=== PATIENT | male | born 1955 | race Caucasian/White ===

== ENCOUNTER 2021-08-20 08:49 | Outpatient (CLI) | payer BC, SELFPAY | END 2021-08-20 08:50 | disposition home or self-care (01) | PROVIDERS: PCP Physician Assistant; Visit Provider Specialist | DX: C44.529 Squamous cell carcinoma of skin of other part of trunk (principal) | CPT/HCPCS: 88305 ==

== ENCOUNTER 2023-07-02 10:38 | Outpatient (CLI) | payer MEDICARE, SELFPAY ==
[2023-07-02 11:08] LABS: Hematocrit 44.1 % (42.0-52.0); Mean Corpuscular HGB Conc 31.7 g/dl (32-36); Mean Corpuscular Hemoglobin 27.9 pg (26-34); Mean Platelet Volume 9.1 fl (7.4-10.4); Platelet Count Result 275 k/mm3 (150-375); Red Blood Count 5.01 M/mm3 (4.6-6.20); Red Cell Distribution Width 12.8 % (11.5-14.5); White Blood Count 5.7 K/mm3 (4.5-10.0)
[2023-07-02 12:32] LABS: Alanine Aminotransferase 25 U/L (6-50); Albumin Level 4.6 g/dL (3.5-5.1); Alkaline Phosphatase 56 U/L (38-126); Anion Gap 8 mmol/L (8-16); Aspartate Amino Transferase 37 U/L (17-59); Bilirubin,Total 0.8 mg/dL (0.2-1.3); Blood Urea Nitrogen 19 mg/dL (9-20); Carbon Dioxide 25 mmol/L (22-30); Chloride 104 mmol/L (98-107); Cholesterol 220 mg/dL (0-200); Estimated Glomerular Filt Rate > 60; Glucose 111 mg/dL (65-110); HDL Direct 36 mg/dL; Potassium 4.6 mmol/L (3.4-5.0); Sodium 137 mmol/L (137-145); Triglycerides 186 mg/dL (<150)
[2023-07-02 12:43] LABS: LDL Cholesterol Direct 149 mg/dL
[2023-07-02 13:02] LABS: Prostate Specific Antigen 1.3 ng/mL (< OR = 4.0)
[2023-07-02 16:08] LABS: Vitamin D 25 Hydroxy 60.5 ng/mL
== END 2023-07-02 10:39 | disposition home or self-care (01) ==
PROVIDERS: PCP Family Medicine; Visit Provider Nurse Practitioner Family
DX: E78.00 Pure hypercholesterolemia, unspecified (principal); E78.5 Hyperlipidemia, unspecified; I10 Essential (primary) hypertension; Z13.29 Encounter for screening for other suspected endocrine disorder; R31.9 Hematuria, unspecified; Z12.5 Encounter for screening for malignant neoplasm of prostate; R30.0 Dysuria; E55.9 Vitamin D deficiency, unspecified
CPT/HCPCS: 36415; 80053; 80061; 82306; 84153; 84443; 85027

== ENCOUNTER 2023-07-09 14:02 | Outpatient (CLI) | payer MEDICARE, SELFPAY ==
--- NOTE | ~2023-07-09 | CT_ITS ---
EXAMINATION: CT abdomen pelvis wo con DATE: 07/09/2023 14:22 INDICATION: Inflammatory disease of prostate, unspecified. TECHNIQUE: Computed tomography (CT) of the abdomen and pelvis was performed without intravenous contr ast. Automated exposure control and iterative reconstruction technique were employed. The dose-length product was 1521.61 mGy-cm. COMPARISON: CT abdomen and pelvis 01/14/2016 FINDINGS: The visualized portions of the lung bases demonstrate calcified pulmonary nodules, consiste nt with old granulomatous disease. No pleural effusion. The heart size is normal. There are coronary artery calcifications. No pericardial effusion. There is a small sliding hiatal hernia. There is diff use hepatic steatosis. Calcifications in the liver consistent with old granulomatous disease. The spl een, pancreas, and right adrenal gland are normal. There is a 15 mm mass in left adrenal gland measur ing low-attenuation without change, consistent with an adenoma. Right kidney is normal. There is a 5 mm stone in left kidney. There is mild left hydronephrosis and hydroureter. There is a 2.6 cm mass wi th mild peripheral calcifications in the bladder at the left ureteral orifice, consistent with urothe lial carcinoma. The prostate is mildly enlarged. There is diverticulosis of the colon without evidenc e of diverticulitis. The appendix is not visualized. There are no dilated loops of bowel. Aortic athe rosclerosis is noted. There are no pathologically enlarged lymph nodes. There is no free intraperiton eal fluid. There is lumbar levocurvature and severe spondylosis. There are bridging endplate osteophy basmi at multiple levels in the spine, consistent with diffuse idiopathic skeletal hyperostosis (DISH). IMPRESSION: 1. 2.6 cm mass in the bladder at the left ureteral orifice, consistent with urothelial carcinoma. 2. Mild left hydronephrosis and hydroureter. Reviewed, dictated and finalized at location E. E SYSTEMS INSTALLER IMPRESSION: 1. 2.6 cm mass in the bladder at the left ureteral orifice, consistent with uro thelial carcinoma. 2. Mild left hydronephrosis and hydroureter.
== END 2023-07-09 14:03 | disposition home or self-care (01) ==
LOC: ANHIMG 14:06
PROVIDERS: PCP Family Medicine; Visit Provider Nurse Practitioner Family
DX: N41.9 Inflammatory disease of prostate, unspecified (principal); R93.89 Abnormal findings on diagnostic imaging of other specified body structures
CPT/HCPCS: 74176

== ENCOUNTER 2023-07-22 10:04 | Outpatient (CLI) | payer MEDICARE, SELFPAY ==
--- NOTE | 2023-07-22 10:07 | EST_ITS ---
Patient Info Name: Sloan Xavier Age: 68 years : 1955 Gender: Male Ht: 76 in Wt: 240 lbs BSA: 2.43 m2 HR: 79 bpm BP: 141 / 91 mmHg Heart Rhythm: Sinus Rhythm Exam Date: 07/22/2023 10:23 AM Exam Location: Echo Lab Patient Status: Outpatient Admit Date: 07/22/2023 Staff Ordering Physician: Opal Levy Attending Provider: Opal Levy Exercise Technologist: Clara Gaston RDCS Exercise Physician: Demetris Black DO Exam Type: CA stress test treadmill Study Info A treadmill exercise stress test was performed. Summary 1. 1. Negative Jaron exercise stress test for ischemic ST changes by ECG criteria. 2. 2. Reduced functional capacity, achieving 5 METs of workload. 3. 3. Baseline hypertension with hypertensive response to exercise. 4. 4. Appropriate HR response to exercise. 5. 5. Appropriate HR recovery at 1 minute post exercise. 6. 6. No imaging with stress testing. 7. 7. Patient informed of the above results. Protocol: Jaron Stress ECG Details Stage: REST Duration (min): 1 min : 14 sec Speed (mph): 0.0 Grade (%): 0 HR (bpm): 82 SBP (mmHg): 141 DBP (mmHg): 91 METS: --- Stage: REST Duration (min): 13 min : 44 sec Speed (mph): 0.0 Grade (%): 0 HR (bpm): 87 SBP (mmHg): 141 DBP (mmHg): 91 METS: --- Stage: STAGE 1 Duration (min): 1 min : 0 sec Speed (mph): 1.7 Grade (%): 10 HR (bpm): 112 SBP (mmHg): 141 DBP (mmHg): 91 METS: --- Stage: STAGE 1 Duration (min): 2 min : 0 sec Speed (mph): 1.7 Grade (%): 10 HR (bpm): 125 SBP (mmHg): 141 DBP (mmHg): 91 METS: --- Stage: STAGE 1 Duration (min): 3 min : 0 sec Speed (mph): 1.7 Grade (%): 10 HR (bpm): 131 SBP (mmHg): 211 DBP (mmHg): 104 METS: --- Stage: STAGE 2 Duration (min): 0 min : 24 sec Speed (mph): 2.5 Grade (%): 12 HR (bpm): 137 SBP (mmHg): 211 DBP (mmHg): 104 METS: --- Stage: RECOVERY Duration (min): 0 min : 35 sec Speed (mph): 0.0 Grade (%): 0 HR (bpm): 131 SBP (mmHg): 211 DBP (mmHg): 104 METS: --- Stage: RECOVERY Duration (min): 1 min : 35 sec Speed (mph): 0.0 Grade (%): 0 HR (bpm): 109 SBP (mmHg): 211 DBP (mmHg): 104 METS: --- Stage: RECOVERY Duration (min): 2 min : 35 sec Speed (mph): 0.0 Grade (%): 0 HR (bpm): 94 SBP (mmHg): 211 DBP (mmHg): 104 METS: --- Stage: RECOVERY Duration (min): 3 min : 35 sec Speed (mph): 0.0 Grade (%): 0 HR (bpm): 99 SBP (mmHg): 203 DBP (mmHg): 88 METS: --- Stage: RECOVERY Duration (min): 4 min : 35 sec Speed (mph): 0.0 Grade (%): 0 HR (bpm): 90 SBP (mmHg): 203 DBP (mmHg): 88 METS: --- Stage: RECOVERY Duration (min): 5 min : 15 sec Speed (mph): 0.0 Grade (%): 0 HR (bpm): 89 SBP (mmHg): 180 DBP (mmHg): 90 METS: --- Rest HR: 87 bpm Peak HR: 138 bpm Rest Sys BP: 141 mmHg Peak Sys BP: 211 mmHg Max Pred HR: 154 bpm % Max Pred HR: 90 % Lunag
== END 2023-07-22 10:05 | disposition home or self-care (01) ==
LOC: ANHCARD 10:06
PROVIDERS: PCP Family Medicine; Visit Provider Nurse Practitioner Family
DX: R06.02 Shortness of breath (principal); I10 Essential (primary) hypertension; Z82.41 Family history of sudden cardiac death
CPT/HCPCS: 93017

== ENCOUNTER 2023-07-31 09:31 | Outpatient (CLI) | payer MEDICARE, SELFPAY ==
--- NOTE | 2023-07-31 10:00 | ECG_ITS ---
Measurements Intervals Ira Rate: 67 P: 52 NM: 188 QRS: 35 QRSD: 85 T: 53 QT: 374 QTc: 397 Interpretive Statements SINUS RHYTHM NORMAL ECG NO PREVIOUS ECG AVAILABLE FOR COMPARISON Electronically Signed On 07-31-2023 13:14:31 CDT by Demetris Black D.O.
== END 2023-07-31 09:32 | disposition home or self-care (01) ==
LOC: ANHSURGERY 09:39
PROVIDERS: PCP Nurse Practitioner Family; Visit Provider Urology
DX: I10 Essential (primary) hypertension (principal); Z01.818 Encounter for other preprocedural examination
CPT/HCPCS: 93005

== ENCOUNTER 2023-08-06 01:30 | Day surgery (SDC) | payer MEDICARE, SELFPAY ==
--- NOTE | 2023-07-30 09:38 | PC.NURSE ---
Report to the Outpatient Waiting Room, entrance under the green pavilion located off [facility], at time __0600 on date __08/06/23 . Planned Procedure Time: _0730 . Time changes happen often and if your time is changed the preop area will call you the afternoon before. - You and your visitor will be asked to self-screen and do not enter if you have any COVID symptoms. - A mask is optional within the hospital at this time. Patients may have clear liquids (water, carbonated beverages, clear teas, apple juice) until 3 hours prior to surgery( 4:30 AM) with a maximum of 20 ounces. - No food from midnight until time of surgery - Infants may have breast milk until 4 hours before surgery, formula 6 hours prior to surgery. - Children will be allowed to drink immediately following surgery. If applicable, please bring a bottle or sippy cup to assist with drinking. Juice, water, soda, and popsicles are readily available. For infants on formula, please bring formula the day of surgery. Pacifiers are allowed. Take the following medications with a SIP of water the morning of surgery: ___NONE DO NOT STOP ANY OF YOUR OTHER PRESCRIPTION MEDICATIONS PRIOR TO SURGERY ?EXCEPT THE FOLLOWING Medications to discontinue per physician ____HOLD ALL VITAMINS AND SUPPLEMENTS 3 DAYS PRE OP.LAST DOSE 08/02/23 Please no make-up, nail spanish, hairspray, perfume, deodorant, or body powder the day of surgery. No jewelry (including any body piercings) or valuables the day of surgery, leave them at home. Please take a shower or bath the night before, or the morning of, surgery with an antibacterial soap. Wear comfortable, loose fitting clothing. Children are encouraged to wear pajamas. - Jewelry must be removed prior to entering the operating room. Rings and piercings that are not removed may be cut off. - The hospital will not accept responsibility for valuables. - Please leave all valuables, including medications, at home the day of surgery. If you are going home after surgery, a licensed batch mixing truck driver must drive you home. - NO public transportation without another adult if you receive anesthesia. - We recommend that an adult stay with you for 24 hours following discharge. - We also recommend that you do not drive, make important decision, drink alcoholic beverages, or take any drugs that were not prescribed by your health care provider for at least 24 hours after your discharge time. Follow any additional instructions given to you from your surgeon. If you or anyone in your household have experienced Covid symptoms in the past week, please notify your surgeon or the nurse liaison at the phone number below for possible testing. Telephone instructions given to ___PATIENT and asked if any additional questions and then verbalized understanding. Patient advised to call surgeon office or pre surgery nurse liaison [phone] if any additional questions.
[2023-07-30 09:45] VITALS: BMI 32.3
[2023-08-06] VITALS (10 sets, daily range): BP systolic 129–162; BP diastolic 65–89; PULSE 61–81; RESP 12–20; TEMP 36.5; O2SAT 95–100; BMI 33.9
--- NOTE | ~2023-08-06 | XR_ITS ---
EXAMINATION: XR retrograde pyelogram BI INDICATION: Bilateral retrograde pyelogram TECHNIQUE: 96 intraoperative fluoroscopic images are submitted for review. Total fluoroscopic time wa s 25.4 seconds. COMPARISON: CT, 07/09/2023 FINDINGS: Fluoroscopic images demonstrate moderate left hydroureteronephrosis. The right renal collec ting system and ureter are normal. Please refer to procedure note for full details. IMPRESSION: 1. Moderate left hydroureteronephrosis. Please refer to procedure note for full details. Reviewed, dictated and finalized at location F.
--- NOTE | 2023-08-06 06:20 | WPDHPUPDATE1 ---
History and Physical Update Update Date/Time: 08/06/23 06:20 History and Physical has been reviewed, including an updated exam of the patient. There are NO changes in the patient's condition. Risks, benefits, and alternatives have been discussed and questions answered. Patient agrees to proceed with procedure.
--- NOTE | 2023-08-06 06:42 | WPDANESEPPF ---
Anes - Initial Pre Proc Eval Procedure: Operation Date: 08/06/23 07:30 Proposed Procedures p Cystoscopy, Bilateral Retrograde Pyelogram, Possible Left Ureteroscopy - Felipe Bass MD s Trans Urethral Resection Bladder Tumor with Gemcitabine Instillation - Felipe Bass MD Date/Time: 08/06/23 06:42 Surgeon: Felipe Bass MD Pre Op Diagnosis: Hematuria Patient Data Age: 68 Gender: M Height: 1.93 m Weight: 120.3 kg Allergies Allergy/AdvReac Type Severity Reaction Status Date / Time No Known Allergies Allergy Verified 07/30/23 09:29 Home Medications Medication Instructions Recorded Confirmed Type Bacillus coagulans 10 billion cell 10 cell PO DAILY 07/02/23 07/30/23 History capsule,delayed release (Probiotic (B. coagulans)) cholecalciferol (vitamin D3) 25 25 mcg PO DAILY 07/02/23 07/30/23 History mcg (1,000 unit) capsule esomeprazole magnesium 20 mg 20 mg PO DAILY 07/02/23 07/30/23 History capsule,delayed release (Nexium) multivit,calcium,min-folic acid 1 tablet PO DAILY 07/02/23 07/30/23 History 240 mcg-D3 25 mcg-lycop 300 mcg tablet (One A Day Men Complete) gemfibrozil 600 mg tablet 600 mg PO BID #180 tabs 07/10/23 07/30/23 Rx lisinopril 20 mg tablet 20 mg PO DAILY #90 tabs 07/10/23 07/30/23 Rx Patient hx anesthesia problems: none Family hx anesthesia problems: none Results Review: All pre-operative results and documents have been reviewed as part of the pre-operative evaluation. [facility] Past Medical History Medical History (Updated 08/06/23 @ 06:42 by Grzegorz Santana MD) BMI 33.0-33.9,adult Essential hypertension Hematuria Hyperlipidemia Surgical History Surgical History (Updated 08/06/23 @ 06:46 by Grzegorz Santana MD) History of appendectomy Family History Family History Father Acute myocardial infarction Social History Social History Smoking packs per day: 1 Smoking cigarettes per day: 20.0 Years smoked: 35 Smoking pack-years: 35.00 Smoking status: Former smoker Tobacco type: cigarettes Smoking end date: 05/18/15 Alcohol intake: never Do You Feel Safe in your Home?: Yes Lack of Transportation: No Lack of Food: Never True Current Housing: I Have Housing Concerned About Future Housing: No Difficulty Paying Gas/Electric Bills: No Difficulty Paying for Meds: No Currently Unemployed: No Education: High School Diploma/GED Difficulty w/ Childcare or Family Care: No Living arrangements: with family Spiritual care concerns: No Anes - Eval Final PreProcedure Day of Procedure 08/06/23 06:42 Patient weight: obese Heart: regular rate and rhythm Airway: Mallampati scale class III Neurological: alert and oriented Last oral intake: >/= 8 hours ASA classification: III Emergent: no Anesthetic plan: proceed Anesthesia type and monitoring: general LMA and standard monitoring Results Review: All pre-operative results and documents have been reviewed as part of the pre-operative evaluation. Informed Consent: The patient's anesthetic plan and its attendant risks and benefits were discussed with the patient/family/POA. Questions were solicited and answers provided to the satisfaction of the patient/family/POA.
[2023-08-06] MEDS: ceFAZolin 3 GM/D5W 100 ML 100 ML IVPB (07:27)
[2023-08-06] MEDS: LACTATED RINGERS 1,000 ML 30 ML IV CONT (07:29)
[2023-08-06] MEDS: LIDOCAINE HCL 2% GEL UROJET 10 ML PKG MUCOUS MEM (07:47)
[2023-08-06] MEDS: SODIUM CHLORIDE 0.9% IV 23.7 ML, GEMCITABINE HCL 1,000 MG BLADDER ×2 (08:23→08:24)
--- NOTE | 2023-08-06 08:30 | W.PM.PROC2 ---
Procedure Note - Detailed Date of Procedure 08/06/23 Pre-op Diagnosis Bladder cancer Post-op Diagnosis Same Procedure Performed Cystoscopy, bilateral retrograde pyelography, TURBT, left ureteroscopy Surgeon Felipe Bass MD Anesthesia General Description of Procedure Patient is brought to the operative suite was prepped and draped in routine sterile fashion while in dorsal lithotomy position after the uneventful induction of a general LMA anesthetic. First placed a 21 F rigid cystoscope in his bladder. He has no urethral stricture and moderate lateral lobe hyperplasia without median lobe enlargement. Prostatic urethra was 2.5 cm estimated length. Bladder shows a large papillary lesion overlying the left posterior lateral bladder wall. I attempted to identify the left ureteral orifice without success. I therefore replaced the cystoscope with a 24 F resectoscope. I resected this large tumor to its base. I was able to identify the left ureteral orifice and avoid any cutting or cautery injury to it. There was 1 small satellite lesion just above this large, 5 cm bladder tumor. After resecting the bulk of the neoplasm I sent the base as a separate specimen. Base and periphery were cauterized with the loop electrode with care taken to avoid any cautery to left ureteral orifice. Bilateral retrograde pyelograms were then obtained using an 8 F bulb-tipped catheter. There was mild dilatation left distal ureter without filling defects. Remainder the ureters and collecting system on both sides were normal, without obstruction or additional filling defects. I did do quick left distal ureteroscopy with a semi-rigid ureteral scope to the level of the iliac vessels. The distal left ureter was endoscopically normal without mucosal hyperemia or neoplasm. Scopes wires were removed. Patient was taken recovery room in good condition Estimated Blood Loss 5 Drains Yes Packing No Pathology Yes Complications No immediate complications Condition Stable Disposition PACU
[2023-08-06] MEDS: fentaNYL CITRATE INJ (*CRX) 100 MCG/2 ML VIAL 25 MCG IV PUSH ×4 (08:31→08:50)
--- NOTE | 2023-08-06 08:34 | W.PM.PROC2 ---
Procedure Note - Detailed Date of Procedure 08/06/23 Pre-op Diagnosis Bladder tumor Post-op Diagnosis Same Procedure Performed Gemcitabine installation Surgeon Felipe Bass MD Anesthesia General Description of Procedure With the patient in the supine position, a 16F Myers catheter is placed using sterile technique. Using a protective facemask, gown and double layer of gloves Gemcitabine 2gm in 100cc saline is administered through the catheter/into the bladder. The catheter is then plugged. Patient was instructed to lie supine x20min, then to roll both the left and right x20 min. each. Total dwell time will be 60 min., after which the bladder will be drained and catheter removed. Estimated Blood Loss 5 Packing No Pathology None sent
--- NOTE | 2023-08-06 08:41 | SUR.PHASEI ---
Simple mask removed at 0841.
--- NOTE | 2023-08-06 08:46 | SUR.PHASEI ---
0845: Patient is lying on left side.
--- NOTE | 2023-08-06 09:06 | SUR.PHASEI ---
0905: Patient is lying on right side.
== END 2023-08-06 10:34 | disposition home or self-care (01) ==
PROVIDERS: PCP Nurse Practitioner Family; Visit Provider Urology
PROC: (CPT 52352; principal; 2023-08-06 07:30)
PROC: 0TBB8ZZ Excision of Bladder, Via Natural or Artificial Opening Endoscopic (ICD-10-PCS; CPT 52351; 2023-08-06 07:30)
DX: C67.2 Malignant neoplasm of lateral wall of bladder (principal); N13.30 Unspecified hydronephrosis; I10 Essential (primary) hypertension; E78.5 Hyperlipidemia, unspecified; K21.9 Gastro-esophageal reflux disease without esophagitis; E66.9 Obesity, unspecified; Z68.33 Body mass index [BMI] 33.0-33.9, adult; Z98.890 Other specified postprocedural states; Z87.891 Personal history of nicotine dependence; Z82.49 Family history of ischemic heart disease and other diseases of the circulatory system
CPT/HCPCS: 52351; 52235; 51720; 74420; 88305; C1758; C1769; J0690; J1100; J2405; J2704; J3010; J7120; J9201; Q9966

== ENCOUNTER 2023-10-06 09:10 | Outpatient (CLI) | payer MEDICARE, SELFPAY | END 2023-10-06 09:11 | disposition home or self-care (01) | PROVIDERS: PCP Nurse Practitioner Family; Visit Provider Specialist | DX: C44.02 Squamous cell carcinoma of skin of lip (principal) | CPT/HCPCS: 88305 ==

== ENCOUNTER 2024-06-23 10:10 | Outpatient (CLI) | payer MEDICARE, SELFPAY ==
--- OUTSIDE RECORDS SUMMARY | 2024-06-23 10:38 | XMS_ITS | Clinical Summary ---
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 Gender Identity Not on file Sexual Orientation Not on file Plan of Treatment Health Maintenance Due Date Last Done Comments Hepatitis C Virus (HCV) Screening 1955 TdaP Immunization 1955 Cologuard 2007 Immunochemical Fecal Occult Blood 2007 Pneumococcal Immunization (5 0+ years) (1 of 1 - PCV) 2007 Zoster Immunization (1 of 2) 2007 PSA Discussion 2012 Colonoscopy 10/07/2021 10/07/2018, 07/29/2018 Colorectal Cancer Screening 10/07/2021 Influenza Immunization (#1) 01/17/202401/2019, 02/26/2017, 02/07/2016 SARS-COV-2 Immunization ( season) 2024 03/21/2021, 08/26/2020, 08/02/2020 Respiratory Syncytial Virus (RSV) Immunization (Adult) (1 - 1-dose 75+ series) 2032 10/07/2018, 07/29/2018 Hepatitis B Immunization Aged Out No longer eligible based on patient's age to complete this topic Meningococcal Immunization (ACWY) Aged Out No longer eligible b ased on patient's age to complete this topic Rotavirus Immunization Aged Out No lo nger eligible based on patient's age to complete this topic Procedures Procedure Name Priority Date/Time Associated Diagnosis Comments COLONOSCOPY Routine 10/07/2018 from Last 3 Months or Most Recently Relevant to Health Maintenance Results * COLONOSCOPY (10/07/2018) us Ash Greene DO PROCEDURE/MINOR SURGICAL ORDERA BLES Final Result from Last 3 Months or Most Recently Relevant to Health Maintenance Care Teams Certified Nurse Midwife Relationship Specialty Start Date End Date Grezgorz Cortes, FAMILIA [address] [place] [id number] PCP - General Physician Commercial Title Examiner 07/01/17
[2024-06-23 11:02] LABS: Hematocrit 43.5 % (42.0-52.0); Hemoglobin 14.1 g/dL (14.0-18.0); Mean Corpuscular HGB Conc 32.4 g/dl (32-36); Mean Corpuscular Hemoglobin 28.9 pg (26-34); Mean Corpuscular Volume 89.1 fl (80-100); Mean Platelet Volume 9.2 fl (7.4-10.4); Platelet Count Result 250 k/mm3 (150-375); Red Blood Count 4.88 M/mm3 (4.6-6.20); Red Cell Distribution Width 13.2 % (11.5-14.5); White Blood Count 6.2 K/mm3 (4.5-10.0)
[2024-06-23 11:14] LABS: Alanine Aminotransferase 25 U/L (6-50); Albumin Level 4.6 g/dL (3.5-5.1); Alkaline Phosphatase 62 U/L (38-126); Anion Gap 12 mmol/L (4-12); Aspartate Amino Transferase 30 U/L (17-59); Bilirubin,Total 0.7 mg/dL (0.2-1.3); Blood Urea Nitrogen 19 mg/dL (9-20); Calcium 9.8 mg/dL (8.4-10.2); Carbon Dioxide 26 mmol/L (22-30); Chloride 105 mmol/L (98-107); Cholesterol 202 mg/dL (0-200); Estimated Glomerular Filt Rate > 60; Glucose 109 mg/dL (65-110); HDL Direct 37 mg/dL; Potassium 5.1 mmol/L (3.4-5.0); Sodium 143 mmol/L (137-145); Triglycerides 186 mg/dL (<150)
[2024-06-23 11:25] LABS: LDL Cholesterol Direct 138 mg/dL
[2024-06-23 11:32] LABS: Vitamin D 25 Hydroxy 67.5 ng/mL
[2024-06-23 11:45] LABS: Prostate Specific Antigen 1.2 ng/mL (< OR = 4.0)
== END 2024-06-23 10:11 | disposition home or self-care (01) ==
LOC: ANHLAB 10:15
PROVIDERS: PCP Family Medicine; Visit Provider Nurse Practitioner Family
DX: Z12.5 Encounter for screening for malignant neoplasm of prostate (principal); J43.9 Emphysema, unspecified; C67.8 Malignant neoplasm of overlapping sites of bladder; I10 Essential (primary) hypertension; E55.9 Vitamin D deficiency, unspecified; N32.89 Other specified disorders of bladder
CPT/HCPCS: 36415; 80053; 80061; 82306; 84153; 84443; 85027; G0103

== ENCOUNTER 2024-08-02 10:35 | Outpatient (CLI) | payer MEDICARE, SELFPAY ==
--- OUTSIDE RECORDS SUMMARY | 2024-08-02 12:01 | XMS_ITS | Clinical Summary ---
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 Gender Identity Not on file Sexual Orientation Not on file Plan of Treatment Health Maintenance Due Date Last Done Comments Hepatitis C Virus (HCV) Screening 1955 TdaP Immunization 1955 Cologuard 2007 Immunochemical Fecal Occult Blood 2007 Pneumococcal Immunization (50+ years) (1 of 1 - PCV) 2007 Zoster Immunization (1 of 2) 2007 PSA Discussion 2012 Colonoscopy 10/07/2021 10/07/2018, 07/29/2018 Colorectal Cancer Screening 10/07/2021 Influenza Immunization (#1) 01/17/202401/2019, 02/26/2017, 02/07/2016, Additional history exists SARS-COV-2 Immunization ( season) 2024 03/21/2021, 08/26/2020, 08/02/2020 Respiratory Syncytial Virus (RSV) Immunization (Adult) (1 - 1-dose 75+ series) 2032 10/07/2018, 07/29/2018 Hepatitis B Immunization Aged Out No longer eligible based on patient's age to complete this topic Meningococcal Immunization (ACWY) Aged Out No longer eligible based on [...] Recently Relevant to Health Maintenance Care Teams [employer] Business Intelligence Developer Relationship Specialty Start Date End Date Grzegorz Cortes, [address] [place] [address] PCP - General Physician Surgical Territory Manager 07/01/17
== END 2024-08-02 10:36 | disposition home or self-care (01) ==
LOC: CHSLAB 10:41
PROVIDERS: PCP Family Medicine; Visit Provider Specialist
DX: L02.212 Cutaneous abscess of back [any part, except buttock and flank] (principal)
CPT/HCPCS: 87070; 87205